=== PATIENT | male | born 1940 | race Caucasian/White ===

== ENCOUNTER 2019-05-14 08:49 | Emergency (ER) | payer MEDICARE, OTHER ==
--- NOTE | 2019-05-14 09:32 | ED ---
Back Pain - HPI Summary HPI Summary: 79 year old male presents to the ED with a chief complaint of back soreness that began a week ago. Patient reports that the pain has radiated to his right abdomen in the past several days. Pain is constant 4/10 severity and alleviated by Tylenol. He denies any pain while eating, fever, chills, diarrhea, dysuria, hematuria, chest pain, or SOB. Patient has a PMHx of kidney stone 35 years ago and HTN. No Hx of gallstones or DM. Patient thought the pain was due to playing tennis, but it has continued since last time he played a week ago. He reports no pain while playing. Patient has no PSHx on his abdomen. Patient does not smoke tobacco, drink alcohol, or do recreational drugs. - History of Current Complaint Chief Complaint: EDAbdPain Stated Complaint: LOWER BACK PAIN AND ABDOMINAL PAIN PER PT Time Seen by Provider: 05/14/19 09:16 Hx Obtained From: Patient Onset/Duration: Gradual Onset, Lasting Days, Still Present Onset/Duration: Started Days Ago Timing: Constant Back Pain Location: Is Diffuse, Radiates To - right abdomen Severity Initially: Mild Severity Currently: Moderate Pain Intensity: 4 Pain Scale Used: 0-10 Numeric Character: Aching Alleviating Symptom(s): OTC Meds Associated Signs And Symptoms: Positive: Abdominal Pain, Flank Pain. Negative: Bladder Incontinence - Allergies/Home Medications Allergies/Adverse Reactions: Allergies Allergy/AdvReac Type Severity Reaction Status Date / Time Penicillins Allergy Unknown Verified 05/14/19 08:53 Reaction Details Home Medications: Home Medications Fenofibrate(NF) [Tricor(NF)] 160 mg PO DAILY 05/14/19 [History Confirmed ] Fluticasone Furoate ELLIPTA(NF [Arnuity ELLIPTA (NF)] 1 puff INH DAILY PRN 05/14 [History Confirmed 05/14/19] PMH/Surg Hx/FS Hx/Imm Hx Endocrine/Hematology History: Denies: Hx Diabetes Cardiovascular History: Reports: Hx Hypertension Infectious Disease History: No Infectious Disease History: Denies: Traveled Outside the [place] in Last 30 Days - Family History Known Family History: Positive: Diabetes - Social History Alcohol Use: Occasionally Hx Substance Use: No Substance Use Type: Reports: None Hx Tobacco Use: No Smoking Status (MU): Never Smoked Tobacco Review of Systems Negative: Fever, Chills Negative: Chest Pain Negative: Shortness Of Breath Positive: Abdominal Pain. Negative: Diarrhea Negative: dysuria, hematuria Positive: Myalgia - back All Other Systems Reviewed And Are Negative: Yes Physical Exam - Summary Physical Exam Summary: Constitutional: Well-developed, Well-nourished, Alert. (-) Distressed Skin: Warm, Dry HENT: Normocephalic; Atraumatic Eyes: Conjunctiva normal Neck: Musculoskeletal ROM normal neck. (-) JVD, (-) Stridor, (-) Tracheal deviation Cardio: Rhythm regular, rate normal, Heart sounds normal; Intact distal pulses; The pedal pulses are 2+ and symmetric. Radial pulses are 2+ and symmetric. (-) Murmur Pulmonary/Chest wall: Effort normal. (-) Respiratory distress, (-) Wheezes, (-) Rales Abd: Soft, (-) Distension, (-) Guarding, (-) Rebound, RLQ tenderness Musculoskeletal: Right flank tenderness, CVA tenderness Lymph: (-) Cervical adenopathy Neuro: Alert, Oriented x3 Psych: Mood and affect Normal Triage Information Reviewed: Yes Vital Signs On Initial Exam: Initial Vitals Temp Pulse Resp BP Pulse Ox 97.8 F 90 17 165/77 97 05/14/19 08:51 05/14/19 08:51 05/14/19 08:51 05/14/19 08:51 05/14/19 08:51 Vital Signs Reviewed: Yes Procedures - Sedation Patient Received Moderate/Deep Sedation with Procedure: No Diagnostics - Vital Signs Vital Signs Temp Pulse Resp BP Pulse Ox 05/14/19 08:51 97.8 F 90 17 165/77 97 - Laboratory Result Diagrams: 05/14/19 09:28 05/14/19 09:28 Lab Statement: Any lab studies that have been ordered have been reviewed, and results considered in the medical decision making process. - CT APCT CT Interpretation Completed By: Radiologist Summary of CT Findings: IMPRESSION: #. Normal appendix documented. #. Colonic diverticulosis without findings of acute diverticulitis. #. Negative for nephrolithiasis or obstructive uropathy. #. Hepatosteatosis. #. 0.55 cm noncalcified nodule lateral basal segment RIGHT lower lobe. Six-month follow-up noncontrast chest CT suggested for reassessment. There [place] relevant prior exams [place] [facility] [place]. An ED physician has reviewed this report. Back Pain Course/Dx - Course Course Of Treatment: 79 year old male presents to the ED with a chief complaint of back soreness that began a week ago. Patient reports that the pain has radiated to his right abdomen in the past several days. Pain is constant 4/10 severity and alleviated by Tylenol. He denies any pain while eating, fever, chills, dysuria, hematuria, chest pain, or SOB. Patient has a PMHx of kidney stone 35 years ago and HTN. No Hx of gallstones or DM. Patient thought the pain was due to playing tennis, but it has continued since last time he played a week ago. He reports no pain while playing. Patient has no PSHx on his abdomen. Patient does not smoke tobacco, drink alcohol, or do recreational drugs. Right flank, CVA, and RLQ tenderness noted on exam. Lab results reveal RBC 3.90, HGB 12.9, HCT 38, MCV 97, MCH 33, BUN 25, Creatinine 1.29, Alk Phos 30, and urine negative. AP CT IMPRESSION: Normal appendix documented. Colonic diverticulosis without findings of acute diverticulitis. Negative for nephrolithiasis or obstructive uropathy. Hepatosteatosis. 0.55 cm noncalcified nodule lateral basal segment RIGHT lower lobe. Six-month follow-up noncontrast chest CT suggested for reassessment. There are no relevant prior exams available [place] [facility] [place]. During ED course patient was given fluids and cyclobenzaprine. Diagnosis is flank pain and cholelithiasis. Patient is feeling better and will be discharged home, follow up with PCP within 3 days. Patient was told to return to the ED for new or worsened symptoms. Pt understands and agrees with this plan. - Diagnoses Provider Diagnoses: Cholelithiasis, Flank pain Discharge ED - Sign-Out/Discharge Documenting (check all that apply): Patient Departure - discharge - Discharge Plan Condition: Stable Disposition: HOME Prescriptions: Cyclobenzaprine TAB* [Flexeril 10 MG TAB*] 10 mg PO TID PRN #14 tab PRN Reason: Spasms - Back Patient Education Materials: Gallstones (ED), Flank Pain (ED) Referrals: Khanh Stern MD [Primary Care Provider] - Additional Instructions: Follow up with your primary care provider within 3 days. Return to the ED if you experience new or worsened symptoms. - Attestation Statements Document Initiated by Janene: Yes Documenting Scribe: Malcolm Ronquillo Provider For Whom Janene is Documenting (Include Credential): Rudy Osman DO Scribe Attestation: [email or web address], scribed for Rudy Osman DO on 05/14/19 at 1108. Status of Scribe Document: Ready
[2019-05-14] MEDS ORDERED: NS 0.9% 1000 ML** 1,000 ML IV ONE (09:33)
[2019-05-14] MEDS ORDERED: Ketorolac INJ* 30 MG/ML 1 ML VIAL IV PUSH ONE (09:33)
[2019-05-14 09:35] LABS: ABS Basophils 0.1 10^3/ul (0-0.2); ABS Eosinophils 0.1 10^3/ul (0-0.6); ABS Lymphocytes 1.1 10^3/ul (1.0-4.8); ABS Monocytes 0.8 10^3/ul (0-0.8); Eosinophil % 2.4 %; Hematocrit 38 % (42-52); Hemoglobin 12.9 g/dL (14.0-18.0); Lymphocyte % 21.8 %; Mean Corpuscular HGB Conc 34 g/dL (31-36); Mean Corpuscular Hemoglobin 33 pg (27-31); Mean Corpuscular Volume 97 fL (80-94); Platelet Count 269 10^3/uL (150-450); Red Cell Distribution Width 13 % (10-15); White Blood Count 5.1 10^3/uL (3.5-10.8)
[2019-05-14 09:55] LABS: Albumin/Globulin Ratio 1.3 (1-3); BUN/Creatinine Ratio 19.4 (8-20); Calcium 9.4 mg/dL (8.6-10.3); EGFR African American 64.7 (>60); EGFR Non-African American 53.5 (>60); Globulin 3.2 g/dL (2-4); Potassium 4.5 mmol/L (3.5-5.0); Total Bilirubin 0.4 mg/dL (0.2-1.0); Total Protein 7.2 g/dL (6.4-8.9)
[2019-05-14 09:58] LABS: Urine Appearance Clear; Urine Bilirubin Negative (Negative); Urine Blood Negative (Negative); Urine Color Yellow; Urine Glucose Negative (Negative); Urine Ketones Negative (Negative); Urine Nitrite Negative (Negative); Urine Protein Negative (Negative); Urine Specific Gravity 1.017 (1.010-1.030); Urine Urobilinogen Negative (Negative)
[2019-05-14] MEDS ORDERED: Cyclobenzaprine TAB* 10 MG PO ONE (10:51)
[2019-05-14 11:17] VITALS: BP 139/88
== END 2019-05-14 11:06 | disposition home or self-care (01) ==
LOC: ED 08:49
DX: K80.20 Calculus of gallbladder without cholecystitis without obstruction (principal); R10.31 Right lower quadrant pain; R91.1 Solitary pulmonary nodule; I10 Essential (primary) hypertension; Z87.442 Personal history of urinary calculi; Z88.0 Allergy status to penicillin; Z79.899 Other long term (current) drug therapy
CPT/HCPCS: 36415; 74176; 80053; 81003; 85025; 96361; 96374; 99283; A9270-GY; J1885